=== PATIENT | female | born 1980 | race Two or more races ===

== ENCOUNTER 2019-05-15 17:12 | Emergency (ER) | payer MEDICAID ==
[~2019-05-15] VITALS: Ht 165.1 cm; Wt 95.3 kg
[2019-05-15 21:24] VITALS: BP 125/76
[2019-05-15] MEDS ORDERED: METHOCARBAMOL 500 MG TAB PO ONE (23:15)
[2019-05-15] MEDS ORDERED: IBUPROFEN 800 MG TAB PO ONE (23:15)
== END 2019-05-15 23:42 | disposition home or self-care (01) ==
LOC: EDBD 17:12 → ER 17:12
DX: S20.311A Abrasion of right front wall of thorax, initial encounter (principal); M54.2 Cervicalgia; R51 Headache; V49.9XXA Car occupant (driver) (passenger) injured in unspecified traffic accident, initial encounter; Y93.89 Activity, other specified; Y92.89 Other specified places as the place of occurrence of the external cause; Y99.8 Other external cause status
CPT/HCPCS: 70450; 71046; 72125; 81025; 93005; 99284; J7030